=== PATIENT | female | born 1960 | race Caucasian/White ===

== ENCOUNTER 2024-04-23 11:04 | Outpatient (CLI) | payer BC ==
[2024-04-23] MEDS ORDERED: Magnevist 469MG/ML 20 ML VIAL ONE (12:15)
== END 2024-04-23 11:05 | disposition home or self-care (01) ==
LOC: CSHMRI 11:04
PROVIDERS: ATTEND Neurological Surgery
DX: D33.2 Benign neoplasm of brain, unspecified (principal); G93.9 Disorder of brain, unspecified
CPT/HCPCS: 36415; 70553; 82565